=== PATIENT | female | born 1990 | race Caucasian/White ===

== ENCOUNTER 2022-06-19 11:07 | Emergency (ER) | payer BC, SELFPAY ==
--- NOTE | ~2022-06-19 | US_ITS ---
EXAMINATION:US venous doppler LE LT INDICATION:Numbness and swelling of the left lower extremity TECHNIQUE: Multiple grayscale, color flow and Doppler images of the left lower extremity deep venous systems were obtained and reviewed. COMPARISON:No prior studies for comparison. FINDINGS: The common femoral, superficial femoral and popliteal veins demonstrate normal respiratory variation, augmentation and compressibility. Color flow is also seen within the posterior tibial, pe roneal, greater saphenous and profunda veins. IMPRESSION: 1: No lower extremity deep venous thrombosis. Reviewed, dictated and finalized at location B.
--- NOTE | ~2022-06-19 | US_ITS ---
US arterial ankle brachial ind INDICATION: Numbness, swelling and tingling TECHNIQUE: Segmental pressures and plethysmographic and Doppler waveforms of the brachial and lower e xtremity arteries were obtained. COMPARISON: None. FINDINGS: Right and left brachial artery pressures of 156 mm Hg and 139 mm Hg, respectively, are concordant (no rmal difference <= 30 mmHg). The right ankle-brachial index (NOY) is 1.16 (normal >= 0.9-1.0). The right great toe-brachial index (TBI) is 0.47 (normal >= 0.60). The left NOY is 0.96. The left TBI is 0.63. IMPRESSION: 1. Normal ankle-brachial indices. 2: Mildly decreased right toe brachial index consistent with peripheral arterial disease. Reviewed, dictated and finalized at location B. IMPRESSION: 1. Normal ankle-brachial indices. 2: Mildly decreased right toe brachial index consistent with peripheral arteria l disease.
[2022-06-19 11:12] VITALS: BP 182/86; PULSE 104; RESP 18; TEMP 36.4; O2SAT 98
--- NOTE | 2022-06-19 11:27 | PC.NURSE ---
pt c/o intermittent numbness to l foot x 3 days. states numbness comes while she is sitting down but subsides once she stands up. concerned she may have blood clot because her family has a hx. denies any injury. pms intact at this time.
--- NOTE | 2022-06-19 11:58 | ED.EXTPRO ---
HPI - Extremity Problem General Chief complaint: Extremity Problem,Nontraumatic Stated complaint: circulation issues with left foot/numbness Time Seen by Provider: 06/19/22 11:41 History of Present Illness HPI Narrative: Patient is a 31-year-old female here for evaluation of numbness and tingling to her left foot x3 days. Patient states the sensation is there when she is at rest and seems to improve when she starts ambulating. She reports some pain in her calf and her anterior thigh as well. She has not taken any medicine for her pain. She denies any weakness in the extremity no fevers, chills, nausea, vomiting. No incontinence or retention of bowel or bladder, saddle anesthesia, back pain, fevers or chills, tick bites. No symptoms in the right lower extremity. Related Data Allergies Allergy/AdvReac Type Severity Reaction Status Date / Time No Known Allergies Allergy Verified 06/19/22 11:26 Review of Systems Review of Systems: Gen.: Denies fevers or chills Eyes: Denies eye pain or visual change ENT: Denies congestion Respiratory: Denies shortness of breath or cough CV: Denies chest pain or palpitations GI: Denies abdominal pain nausea, emesis or diarrhea denies burning, urgency, frequency or hematuria Musculoskeletal: Reports numbness and tingling in the foot Neuro: Denies numbness, tingling, weakness or focal weakness Skin: Denies rash Except as documented, all other systems reviewed and negative Exam Narrative: APPEARANCE: Well appearing, no pain in distress, well-nourished. Head: Normocephalic and atraumatic. EYES: PERRLA/EOMI, conjunctivae clear NOSE: No nasal drainage EARS: External ear normal in appearance THROAT: Oropharynx is clear. Mucous membranes are moist. NECK: Supple. No adenopathy, no masses. RESPIRATORY: Airway patent, respirations nonlabored. Clear to auscultation bilaterally, no rales, rhonchi, wheezing. CARDIOVASCULAR: Doppler signals to the left DP and PT heard on the left. There is 1+ DP and PT pulses on the right. Regular rate and rhythm without murmurs, rubs, or gallops. ABDOMINAL: Normoactive bowel sounds. Soft, nontender, nondistended. No rebound tenderness or guarding. MUSCULOSKELETAL: Sensation intact to the foot. NEURO: Normal speech. No focal neurologic deficits. SKIN: No discoloration to the feet PSYCHIATRIC: Normal affect/mood. Course Vital Signs Vital signs: Vital Signs Temperature 97.6 F 06/19/22 11:12 Pulse Rate 104 H 06/19/22 11:12 Respiratory Rate 18 06/19/22 11:12 Blood Pressure 182/86 H 06/19/22 11:12 Pulse Oximetry 98 06/19/22 11:12 Temperature 97.6 F 06/19/22 11:12 Pulse Rate 104 H 06/19/22 11:12 Respiratory Rate 18 06/19/22 11:12 Blood Pressure 182/86 H 06/19/22 11:12 Pulse Oximetry 98 06/19/22 11:12 MDM - Extremity (Nontraumatic) MDM Narrative Medical decision making narrative: 31-year-old female here for evaluation of numbness and tingling in her left foot x4 days. She has diminished pulses in the left side but they are heard with the Doppler signal, left foot is somewhat cooler to touch than the right, the right DP and PT are palpable and the entire foot is warm. No mottling/skin changes. Ultrasound is negative for DVT. ABIs are normal bilaterally but surprisingly on the right (the foot where patient is not having symptoms) she does have a slightly diminished TBI. Will refer to vascular surgery, patient may have Raynaud's phenomenon, she is young and without risk factors for PVD. She is also requesting refills of her antihypertensives, will send home with amlodipine for a month until she can see her PMD. Discharge Plan Discharge Clinical Impression: Numbness and tingling of foot Patient Disposition: Home, Self-Care Condition: Stable Instructions: Antibiotic Form, Paresthesia (ED) Additional Instructions: Your work-up in the emergency department is reassuring. There is no blood clot in your leg or de
== END 2022-06-19 14:07 | disposition home or self-care (01) ==
PROVIDERS: Emergency Provider Physician Assistant; PCP Family Medicine
DX: R20.2 Paresthesia of skin (principal)
CPT/HCPCS: 93922; 93971; 99284

== ENCOUNTER 2022-07-28 13:46 | Outpatient (CLI) | payer BC, SELFPAY ==
[2022-07-28 18:35] LABS: Hematocrit 40.9 % (37.0-47.0); Hemoglobin 12.9 g/dL (12.0-15.0); Mean Corpuscular HGB Conc 31.5 g/dl (32-36); Mean Corpuscular Hemoglobin 26.1 pg (26-34); Mean Corpuscular Volume 82.6 fl (80-100); Mean Platelet Volume 10.5 fl (7.4-10.4); Platelet Count Result 351 k/mm3 (150-375); Red Blood Count 4.95 M/mm3 (4.2-5.4)
[2022-07-28 18:41] LABS: Alanine Aminotransferase 32 U/L (6-35); Albumin Level 4.6 g/dL (3.5-5.1); Alkaline Phosphatase 83 U/L (38-126); Anion Gap 8 mmol/L (8-16); Aspartate Amino Transferase 25 U/L (14-36); Bilirubin,Total 0.4 mg/dL (0.2-1.3); Blood Urea Nitrogen 13 mg/dL (7-17); Calcium 9.1 mg/dL (8.4-10.2); Carbon Dioxide 28 mmol/L (22-30); Chloride 103 mmol/L (98-107); Cholesterol 236 mg/dL (0-200); Estimated Glomerular Filt Rate > 60; Glucose 99 mg/dL (65-110); HDL Direct 34 mg/dL; Potassium 4.1 mmol/L (3.4-5.0); Sodium 139 mmol/L (137-145); Triglycerides 228 mg/dL (<150)
[2022-07-28 18:58] LABS: LDL Cholesterol Direct 147 mg/dL
== END 2022-07-28 13:47 | disposition home or self-care (01) ==
LOC: ANHGOSHLAB 13:47
PROVIDERS: PCP Family Medicine; Visit Provider Family Medicine
DX: E66.9 Obesity, unspecified (principal); R20.0 Anesthesia of skin; R20.2 Paresthesia of skin; Z76.89 Persons encountering health services in other specified circumstances; I10 Essential (primary) hypertension
CPT/HCPCS: 36415; 80053; 80061; 82607; 84443; 85027

== ENCOUNTER 2023-02-15 08:12 | Outpatient (CLI) | payer BC, SELFPAY ==
[2023-02-15 15:30] LABS: Alanine Aminotransferase 38 U/L (6-35); Albumin Level 4.6 g/dL (3.5-5.1); Alkaline Phosphatase 75 U/L (38-126); Anion Gap 13 mmol/L (8-16); Aspartate Amino Transferase 37 U/L (14-36); Bilirubin,Total 0.6 mg/dL (0.2-1.3); Blood Urea Nitrogen 13 mg/dL (7-17); Calcium 9.7 mg/dL (8.4-10.2); Carbon Dioxide 27 mmol/L (22-30); Chloride 103 mmol/L (98-107); Cholesterol 248 mg/dL (0-200); Estimated Glomerular Filt Rate > 60; Glucose 100 mg/dL (65-110); HDL Direct 33 mg/dL; Potassium 4.5 mmol/L (3.4-5.0); Sodium 143 mmol/L (137-145); Triglycerides 292 mg/dL (<150)
[2023-02-15 15:41] LABS: LDL Cholesterol Direct 144 mg/dL
[2023-02-15 18:34] LABS: Vitamin D 25 Hydroxy 16.5 ng/mL
== END 2023-02-15 08:13 | disposition home or self-care (01) ==
LOC: ANHGOSHLAB 08:13
PROVIDERS: PCP Family Medicine; Visit Provider Nurse Practitioner
DX: E78.5 Hyperlipidemia, unspecified (principal); E55.9 Vitamin D deficiency, unspecified
CPT/HCPCS: 36415; 80053; 80061; 82306